=== PATIENT | female | born 1955 | race Asian ===

== ENCOUNTER 2017-11-27 17:04 | Inpatient (IN) | payer OTHER ==
[~2017-11-27] VITALS: Ht 160 cm; Wt 66.3 kg
[~2017-11-27 17:04] MED LIST: ACTOS15 MG PO; ACTOS45 MG PO; ALPHAGAN P100 DROP/5 RIGHT EYE; AMLODIPINE BESY10 MG PO; ASPIR-LOW81 MG PO; ASPIRIN E.C.81 M1 PO; ATENOLOL100 MG PO; ATROPINE 1100 DROP/5 RIGHT EYE; BASAGLAR K100 UNIT/1 SC; CALCITRIOL0.25 MCG PO; COLACE100 MG PO; COMBIGAN O20 DROP/5 RIGHT EYE; CONSTULOSE10 GM/15 M PO; Cipro PO; ERGOCALCIF50000 UNIT PO; FLUDROCORTISON0.1 M1 PO; FUROSEMIDE20 MG PO; HYDROCHLOROTHIA25 MG PO; HYDROCODON-ACE1 EAC7 PO; ISOPTO CARPINE15 M1 RIGHT EYE; KEFLEX500 MG PO; LANTUS 10100 UNITS/ SC; LANTUS 10100 UNITS/ SQ; LANTUS 3 M100 UNITS/ SC; LANTUS 3 M100 UNITS1 SC; LASIX20 MG PO; LEVAQUIN750 MG PO; LORTAB 5-325 M1 EACH PO; Lasix PO; MEDROL DOSEPAK4 MG PO; METOCLOPRAMIDE10 MG PO; NOVOLIN R100 UNIT/1 IM; NOVOLOG 10100 UNITS/ SC; OCUFLOX 0.100 DROP/5 RIGHT EYE; PIOGLITAZONE HC15 MG PO; ROCALTROL0.25 MCG PO; ROXICODONE5 MG PO; SIMVASTATIN20 MG PO; SIMVASTATIN40 M1 PO; TRAVATAN Z5 ML RIGHT EYE; TYLENOL WITH C1 EACH PO; Tenormin PO; VITAMIN D250000 UNIT PO; ZESTRIL,PRINIVI10 M1 PO; ZOFRAN4 MG PO
[2017-11-27 18:43] LABS: BASOPHIL (%) 1.2 % (0-1); BASOPHIL COUNT 0.1 K/uL (0-0.1); EOSINOPHIL (%) 6.2 % (0-5); EOSINOPHIL COUNT 0.6 K/uL (0-0.3); HEMATOCRIT 34.1 % (36.0-46.0); HEMOGLOBIN 11.5 G/DL (11.9-15.5); IMMATURE GRANULOCYTE (%) 0.3 % (0.0-0.7); LYMPHOCYTE (%) 28.5 % (15-42); LYMPHOCYTE COUNT 2.7 K/uL (1.0-2.8); MCH 29.4 PG (29.0-34.0); MCHC 33.7 G/DL (30.0-36.0); MCV 87.2 FL (83-99); MONOCYTE COUNT 0.6 K/uL (0-0.8); NEUTROPHIL (%) 57.8 % (45-76); NEUTROPHIL COUNT 5.5 K/uL (1.8-6.4); PLATELET COUNT 259 K/uL (156-360); RBC DIS.WIDTH-CV 12.4 % (11.8-14.6); RBC DIS.WIDTH-SD 39.3 % (39-53); RED BLOOD COUNT 3.91 M/uL (3.80-5.20); WHITE BLOOD COUNT 9.6 K/uL (4.1-10.2)
[2017-11-27 18:51] LABS: CHLORIDE 105 mEq/L (99-109); INTER. NORMALIZED RATIO 0.9; SODIUM 139 mEq/L (136-147)
[2017-11-27 18:53] LABS: GLUCOSE 279 mg/dL (70-99)
[2017-11-27 18:57] LABS: GFR ESTIMATE (CALCULATED) 17 mL/min/
[2017-11-27 18:58] LABS: UREA NITROGEN (BUN) 52 mg/dL (9-23)
[2017-11-27 19:03] LABS: TROP-I INTERPRETATION NEGATIVE; TROPONIN-I 0.04 ng/mL (0.0-0.30)
[2017-11-27] MEDS ORDERED: ADULT ASPIRIN R81 MG PO (20:19)
[2017-11-27] MEDS ORDERED: NORMODYNE,TRAN200 MG PO (20:45)
[2017-11-27] MEDS ORDERED: SPECTRAVITE1 EAC3 PO (20:45)
[2017-11-27] MEDS ORDERED: SENNA8.6 MG PO (20:50)
[2017-11-27] MEDS ORDERED: METOCLOPRAMIDE10 MG PO (20:50)
[2017-11-27] MEDS ORDERED: CALCITRIOL0.25 MCG PO ×3 (20:51)
[2017-11-27 20:58] LABS: PTT 34.7 SEC (25-37)
[2017-11-27 22:29] VITALS: BP 142/68
[2017-11-28] VITALS (8 sets, daily range): BP systolic 119–200; BP diastolic 57–159
[2017-11-28 01:08] LABS: TROP-I INTERPRETATION NEGATIVE; TROPONIN-I 0.08 ng/mL (0.0-0.30)
[2017-11-28 03:11] LABS: HEMATOCRIT 33.4 % (36.0-46.0); MCHC 32.9 G/DL (30.0-36.0); MCV 88.1 FL (83-99); PLATELET COUNT 255 K/uL (156-360); RBC DIS.WIDTH-CV 12.4 % (11.8-14.6); RBC DIS.WIDTH-SD 39.6 % (39-53); RED BLOOD COUNT 3.79 M/uL (3.80-5.20); WHITE BLOOD COUNT 10.9 K/uL (4.1-10.2)
[2017-11-28 03:47] LABS: CHLORIDE 106 mEq/L (99-109); POTASSIUM 3.8 mEq/L (3.7-5.4); SODIUM 142 mEq/L (136-147)
[2017-11-28 03:49] LABS: GLUCOSE 210 mg/dL (70-99)
[2017-11-28 03:53] LABS: CREATININE 2.9 mg/dL (0.6-1.3); GFR ESTIMATE (CALCULATED) 17 mL/min/
[2017-11-28 03:54] LABS: UREA NITROGEN (BUN) 54 mg/dL (9-23)
[2017-11-28 07:40] LABS: TROP-I INTERPRETATION NEGATIVE; TROPONIN-I 0.07 ng/mL (0.0-0.30)
[2017-11-28 21:43] LABS: CHLORIDE 111 mEq/L (99-109); POTASSIUM 4.2 mEq/L (3.7-5.4); SODIUM 143 mEq/L (136-147)
[2017-11-28 21:44] LABS: GLUCOSE 213 mg/dL (70-99)
[2017-11-28 21:48] LABS: CREATININE 2.5 mg/dL (0.6-1.3); GFR ESTIMATE (CALCULATED) 21 mL/min/
[2017-11-28 21:49] LABS: UREA NITROGEN (BUN) 46 mg/dL (9-23)
[2017-11-28 21:51] LABS: CREATINE KINASE 131 IU/L (1-294); TOTAL CK 131 IU/L (1-294)
[2017-11-28 21:56] LABS: TROP-I INTERPRETATION NEGATIVE; TROPONIN-I 0.03 ng/mL (0.0-0.30)
[2017-11-28 21:57] LABS: CK-MB 2.7 ng/mL (0.0-4.9); CKMB RELATIVE INDEX 2.1 (0.0-3.9)
[2017-11-29] VITALS (16 sets, daily range): BP systolic 87–154; BP diastolic 47–115
[2017-11-29 00:26] LABS: BASE EXCESS -5.6 mEq/L (-3 to +3); BICARBONATE 20.1 mEq/L (22-26); CARBOXY HGB 0 % (0-5); METHEMOGLOBIN 0.4 % (0-1.5); PCO2 39 mm Hg (35-45); PO2 98 mm Hg (80-100); SITE RR; pH 7.32 (7.35-7.45)
[2017-11-29 00:27] LABS: DEVICE NIV; FI02 50 %; MODE S; PEEP 5 CM/H20; PRES. SUPPORT 10 CM/H2O; TOTAL RESP RATE 26 resp/min
[2017-11-29 05:28] LABS: BASOPHIL (%) 0.6 % (0-1); BASOPHIL COUNT 0.1 K/uL (0-0.1); EOSINOPHIL (%) 0.5 % (0-5); EOSINOPHIL COUNT 0.1 K/uL (0-0.3); HEMATOCRIT 33.1 % (36.0-46.0); HEMOGLOBIN 10.5 G/DL (11.9-15.5); IMMATURE GRANULOCYTE (%) 0.3 % (0.0-0.7); LYMPHOCYTE (%) 15.4 % (15-42); LYMPHOCYTE COUNT 2.2 K/uL (1.0-2.8); MCH 28.8 PG (29.0-34.0); MCHC 31.7 G/DL (30.0-36.0); MCV 90.7 FL (83-99); MONOCYTE (%) 4.5 % (3-12); MONOCYTE COUNT 0.6 K/uL (0-0.8); NEUTROPHIL (%) 78.7 % (45-76); NEUTROPHIL COUNT 11.1 K/uL (1.8-6.4); PLATELET COUNT 245 K/uL (156-360); RBC DIS.WIDTH-CV 12.5 % (11.8-14.6); RBC DIS.WIDTH-SD 41.1 % (39-53); RED BLOOD COUNT 3.65 M/uL (3.80-5.20); WHITE BLOOD COUNT 14.1 K/uL (4.1-10.2)
[2017-11-29 05:51] LABS: PTT 67.3 SEC (25-37)
[2017-11-29 05:56] LABS: ALBUMIN 3.9 G/DL (3.2-4.8); CHLORIDE 109 MEQ/L (99-109); CREATININE 2.6 MG/DL (0.6-1.3); GFR ESTIMATE (CALCULATED) 20 mL/min/; GLUCOSE 177 mg/dL (70-99); GLUCOSE 179 mg/dL (70-99); PHOSPHORUS 4.8 mg/dL (2.5-4.9); POTASSIUM 4.1 MEQ/L (3.7-5.4); POTASSIUM 4.2 MEQ/L (3.7-5.4); SODIUM 141 MEQ/L (136-147); UREA NITROGEN (BUN) 47 mg/dL (9-23); UREA NITROGEN (BUN) 48 mg/dL (9-23)
[2017-11-30 05:50] LABS: INTER. NORMALIZED RATIO 1.1
[2017-11-30 07:00] VITALS: BP 179/63
[2017-11-30 08:17] LABS: ALBUMIN 3.9 G/DL (3.2-4.8); CHLORIDE 112 MEQ/L (99-109); CREATININE 2.5 MG/DL (0.6-1.3); GFR ESTIMATE (CALCULATED) 21 mL/min/; GLUCOSE 151 mg/dL (70-99); PHOSPHORUS 4.6 mg/dL (2.5-4.9); POTASSIUM 4.2 MEQ/L (3.7-5.4); SODIUM 147 MEQ/L (136-147); UREA NITROGEN (BUN) 40 mg/dL (9-23)
== END 2017-11-30 12:45 | disposition short-term general hospital (02) | DRG 270 ==
LOC: EME 17:04 → 4EAST 21:41 → EDOF 21:41 → 4WEST 21:41 → ENRESERV 21:42 → 4EAST 22:24 → ENRESERV 11-28 21:30 → 4WEST 11-28 21:40
PROVIDERS: Emergency Medicine; Hospitalist; Internal Medicine; Internal Medicine Nephrology; Surgery
PROC: 5A09357 Assistance with Respiratory Ventilation, Less than 24 Consecutive Hours, Continuous Positive Airway Pressure (ICD-10-PCS; principal; 2017-11-28)
PROC: 5A02210 Assistance with Cardiac Output using Balloon Pump, Continuous (ICD-10-PCS; 2017-11-29)
PROC: B2111ZZ Fluoroscopy of Multiple Coronary Arteries using Low Osmolar Contrast (ICD-10-PCS; 2017-11-29)
PROC: 4A023N7 Measurement of Cardiac Sampling and Pressure, Left Heart, Percutaneous Approach (ICD-10-PCS; 2017-11-29)
DX: I21.4 Non-ST elevation (NSTEMI) myocardial infarction (principal); J96.01 Acute respiratory failure with hypoxia; N17.9 Acute kidney failure, unspecified; I25.110 Atherosclerotic heart disease of native coronary artery with unstable angina pectoris; I25.84 Coronary atherosclerosis due to calcified coronary lesion; I13.0 Hypertensive heart and chronic kidney disease with heart failure and stage 1 through stage 4 chronic kidney disease, or unspecified chronic kidney disease; E11.22 Type 2 diabetes mellitus with diabetic chronic kidney disease; I50.30 Unspecified diastolic (congestive) heart failure; N18.4 Chronic kidney disease, stage 4 (severe); E11.65 Type 2 diabetes mellitus with hyperglycemia; E11.319 Type 2 diabetes mellitus with unspecified diabetic retinopathy without macular edema; E11.43 Type 2 diabetes mellitus with diabetic autonomic (poly)neuropathy; K31.84 Gastroparesis; E11.51 Type 2 diabetes mellitus with diabetic peripheral angiopathy without gangrene; D63.1 Anemia in chronic kidney disease; D50.9 Iron deficiency anemia, unspecified; E78.5 Hyperlipidemia, unspecified; M19.90 Unspecified osteoarthritis, unspecified site; E55.9 Vitamin D deficiency, unspecified; N25.81 Secondary hyperparathyroidism of renal origin; H54.62 Unqualified visual loss, left eye, normal vision right eye; H33.22 Serous retinal detachment, left eye; E78.00 Pure hypercholesterolemia, unspecified; I25.2 Old myocardial infarction; F41.9 Anxiety disorder, unspecified; F32.9 Major depressive disorder, single episode, unspecified; I49.3 Ventricular premature depolarization; Z79.4 Long term (current) use of insulin; Z79.82 Long term (current) use of aspirin; Z89.411 Acquired absence of right great toe; Z83.3 Family history of diabetes mellitus; Z82.49 Family history of ischemic heart disease and other diseases of the circulatory system
CPT/HCPCS: 36600; 71045; 71046; 80048; 80048 91; 80069; 82550 91; 82553; 82803; 82948; 84484; 85025; 85027; 85610; 85730; 87641; 93005; 93306; 94002; 99281; 99285; C1725; C1769; C1887; C1894; J1644; J1815; J1940; J2250; J3010; J7030

== ENCOUNTER 2018-01-03 13:55 | Inpatient (IN) | payer OTHER ==
[~2018-01-03] VITALS: Ht 162.6 cm; Wt 75.3 kg
[~2018-01-03 13:55] MED LIST changes: +ADULT ASPIRIN R81 MG PO; +NORMODYNE,TRAN200 MG PO; +SENNA8.6 MG PO; +SPECTRAVITE1 EAC3 PO
[2018-01-03 15:18] LABS: BICARBONATE 19.3 mEq/L (22-26); METHEMOGLOBIN 0.8 % (0-1.5); PCO2 41 mm Hg (35-45); PO2 72 mm Hg (80-100)
[2018-01-03 15:19] LABS: COMMENTS - BLOOD GASES C+; DEVICE VENT; FI02 35 %; MECHANICAL RATE 12 resp/min; MODE SIMV; PEEP 5 CM/H20; PRES. SUPPORT 5 CM/H2O; SITE RR; TIDAL VOLUME 450 ML; TOTAL RESP RATE 16 resp/min; pH 7.28 (7.35-7.45)
[2018-01-03 15:45] LABS: BASOPHIL (%) 0.3 % (0-1); BASOPHIL COUNT 0.1 K/uL (0-0.1); EOSINOPHIL (%) 0.2 % (0-5); HEMATOCRIT 26.2 % (36.0-46.0); HEMOGLOBIN 7.9 G/DL (11.9-15.5); IMMATURE GRANULOCYTE (%) 0.9 % (0.0-0.7); LYMPHOCYTE (%) 4.4 % (15-42); LYMPHOCYTE COUNT 0.7 K/uL (1.0-2.8); MCH 29.7 PG (29.0-34.0); MCHC 30.2 G/DL (30.0-36.0); MCV 98.5 FL (83-99); NEUTROPHIL (%) 88.2 % (45-76); NEUTROPHIL COUNT 14.3 K/uL (1.8-6.4); NRBC (%) 0.3 /100 WBC (0-0); PLATELET COUNT 312 K/uL (156-360); RBC DIS.WIDTH-CV 17.4 % (11.8-14.6); RBC DIS.WIDTH-SD 62.9 % (39-53); RED BLOOD COUNT 2.66 M/uL (3.80-5.20); WHITE BLOOD COUNT 16.3 K/uL (4.1-10.2)
[2018-01-03 15:53] LABS: CHLORIDE 108 mEq/L (99-109); POTASSIUM 4.5 mEq/L (3.7-5.4); SODIUM 138 mEq/L (136-147)
[2018-01-03 15:56] LABS: GLUCOSE 170 mg/dL (70-99); TOTAL PROTEIN 6.7 g/dL (6.4-8.3)
[2018-01-03 15:58] LABS: TOTAL BILIRUBIN 0.6 mg/dL (0.0-1.0)
[2018-01-03 15:59] LABS: ALKALINE PHOSPHATASE 270 IU/L (3-129); CREATININE 3.7 mg/dL (0.6-1.3); GFR ESTIMATE (CALCULATED) 13 mL/min/
[2018-01-03 16:01] LABS: AST (GOT) 17 IU/L (2-34)
[2018-01-03 16:02] LABS: ALT (GPT) 28 IU/L (3-49)
[2018-01-03 16:03] LABS: LIPASE 526 U/L (1.0-51.0)
[2018-01-03 16:06] LABS: TROP-I INTERPRETATION NEGATIVE; TROPONIN-I 0.12 ng/mL (0.0-0.30)
[2018-01-03 16:19] LABS: UREA NITROGEN (BUN) 113 mg/dL (9-23)
[2018-01-03] MEDS ORDERED: PAIN RELIE160 MG/52 PO (17:20)
[2018-01-03] MEDS ORDERED: AMIODARONE HCL200 MG PO (17:21)
[2018-01-03] MEDS ORDERED: DUONEB 2.5-0.5 M3 ML AEROSOL (17:21)
[2018-01-03] MEDS ORDERED: ATORVASTATIN CA40 MG GT (17:22)
[2018-01-03] MEDS ORDERED: DULCOLAX10 MG PR (17:22)
[2018-01-03] MEDS ORDERED: CHLORHEXIDINE473 ML MM (17:23)
[2018-01-03] MEDS ORDERED: ARANESP40 MCG/0.4 IV (17:24)
[2018-01-03] MEDS ORDERED: PLAVIX75 MG GT (17:24)
[2018-01-03] MEDS ORDERED: PEPCID20 MG GT (17:25)
[2018-01-03] MEDS ORDERED: FENTANYL 050 MCG/1 M IV (17:26)
[2018-01-03] MEDS ORDERED: GLUCOSE GEL38 GM PO (17:27)
[2018-01-03] MEDS ORDERED: GLUCAGON1 MG IM (17:27)
[2018-01-03] MEDS ORDERED: APRESOLINE20 MG/ML IV (17:28)
[2018-01-03] MEDS ORDERED: HEPARIN SO5000 UNIT3 SC (17:28)
[2018-01-03] MEDS ORDERED: LANTUS 10100 UNITS/ SC (17:29)
[2018-01-03] MEDS ORDERED: HUMALOG100 UNIT/1 SC (17:30)
[2018-01-03] MEDS ORDERED: LOPRESSOR25 MG GT (17:32)
[2018-01-03] MEDS ORDERED: LOPRESSOR5 MG/5 ML IV (17:33)
[2018-01-03] MEDS ORDERED: LOPRESSOR25 MG PO (17:35)
[2018-01-03] MEDS ORDERED: OXYCODONE HCL10 MG GT (17:36)
[2018-01-03] MEDS ORDERED: AKWA TEARS OIN3.5 GM BOTH EYES (17:36)
[2018-01-03] MEDS ORDERED: POTASSIUM CHLORIDE IV (17:39)
[2018-01-03] MEDS ORDERED: KLOR-CON M2020 MEQ PO (17:40)
[2018-01-03] MEDS ORDERED: SERTRALINE HCL50 MG PO (17:40)
[2018-01-03] MEDS ORDERED: METAMUCIL FIBE3.4 GM PO (17:40)
[2018-01-03] MEDS ORDERED: GAS RELIEF 8080 MG GT (17:41)
[2018-01-03] MEDS ORDERED: TRAZODONE HCL50 MG GT (17:41)
[2018-01-03 19:38] LABS: APPEARANCE SL.HAZY ((CLEAR)); BILIRUBIN NEGATIVE; BLOOD MODERATE; COLOR YELLOW ((YELLOW)); GLUCOSE (STRIP) 150; KETONES NEGATIVE; LEUKOCYTES NEGATIVE; NITRITE NEGATIVE; PROTEIN (STRIP) 30; SPECIFIC GRAVITY 1.014 (1.000-1.030); UROBILINOGEN 0.2 MG/DL (0.2-1.0)
[2018-01-03 19:47] LABS: BACTERIA NONE SEEN /HPF; EPITHELIAL CELLS RARE /HPF; HYALINE CASTS 0-5 /LPF; MUCUS TRACE /LPF; RED BLOOD CELLS 30-40 /HPF (0-5); UCUL ADDED? YES
[2018-01-03 20:00] VITALS: BP 140/76
[2018-01-03 20:01] VITALS: BP 142/73
[2018-01-03 20:19] LABS: TRIGLYCERIDES 65 MG/DL (Normal: <150)
[2018-01-03 20:59] VITALS: BP 125/64
[2018-01-03 22:01] VITALS: BP 137/72
[2018-01-03 22:35] LABS: ALBUMIN 2.7 g/dL (3.2-4.8); CHLORIDE 111 mEq/L (99-109); POTASSIUM 4.4 mEq/L (3.7-5.4); SODIUM 141 mEq/L (136-147)
[2018-01-03 22:36] VITALS: BP 139/76
[2018-01-03 22:36] LABS: MAGNESIUM 2.7 mg/dL (1.3-2.7)
[2018-01-03 22:38] LABS: TOTAL PROTEIN 5.9 g/dL (6.4-8.3)
[2018-01-03 22:40] LABS: GLUCOSE 116 mg/dL (70-99); TOTAL BILIRUBIN 0.6 mg/dL (0.0-1.0)
[2018-01-03 22:41] LABS: ALKALINE PHOSPHATASE 221 IU/L (3-129); CREATININE 3.6 mg/dL (0.6-1.3); GFR ESTIMATE (CALCULATED) 14 mL/min/; PHOSPHORUS 5.5 mg/dL (2.5-4.9)
[2018-01-03 22:44] LABS: ALT (GPT) 25 IU/L (3-49)
[2018-01-03 22:50] LABS: AST (GOT) 27 IU/L (2-34); UREA NITROGEN (BUN) 112 mg/dL (9-23)
[2018-01-04] VITALS (20 sets, daily range): BP systolic 103–146; BP diastolic 53–72
[2018-01-04 06:06] LABS: CHLORIDE 109 MEQ/L (99-109); CREATININE 3.3 MG/DL (0.6-1.3); GFR ESTIMATE (CALCULATED) 15 mL/min/; GLUCOSE 134 mg/dL (70-99); SODIUM 140 MEQ/L (136-147); UREA NITROGEN (BUN) 96 mg/dL (9-23)
[2018-01-04 13:49] LABS: IRON 26 MCG/DL (35-150); TRANSFERRIN (TIBC) 170.5 mg/dL (215-380); TRANSFERRIN SATUR. 15 % (20-55)
[2018-01-04 15:02] LABS: TROP-I INTERPRETATION NEGATIVE; TROPONIN-I 0.11 ng/mL (0.0-0.30)
[2018-01-05] VITALS (25 sets, daily range): BP systolic 112–155; BP diastolic 54–79
[2018-01-05 05:54] LABS: BASOPHIL (%) 0.4 % (0-1); BASOPHIL COUNT 0.1 K/uL (0-0.1); EOSINOPHIL (%) 3.1 % (0-5); EOSINOPHIL COUNT 0.5 K/uL (0-0.3); HEMATOCRIT 22.2 % (36.0-46.0); IMMATURE GRANULOCYTE (%) 0.4 % (0.0-0.7); LYMPHOCYTE (%) 4.5 % (15-42); LYMPHOCYTE COUNT 0.7 K/uL (1.0-2.8); MCH 29.3 PG (29.0-34.0); MCHC 30.2 G/DL (30.0-36.0); MCV 96.9 FL (83-99); MONOCYTE (%) 6.3 % (3-12); MONOCYTE COUNT 0.9 K/uL (0-0.8); NEUTROPHIL (%) 85.3 % (45-76); NEUTROPHIL COUNT 12.4 K/uL (1.8-6.4); NRBC (%) 0.1 /100 WBC (0-0); PLATELET COUNT 251 K/uL (156-360); RBC DIS.WIDTH-SD 63.3 % (39-53); RED BLOOD COUNT 2.29 M/uL (3.80-5.20); WHITE BLOOD COUNT 14.6 K/uL (4.1-10.2)
[2018-01-05 06:09] LABS: HEMOGLOBIN 6.7 G/DL (11.9-15.5)
[2018-01-05 06:25] LABS: ALBUMIN 2.6 G/DL (3.2-4.8); ALKALINE PHOSPHATASE 194 IU/L (3-129); ALT (GPT) 19 IU/L (3-49); AST (GOT) 11 IU/L (2-34); CHLORIDE 105 MEQ/L (99-109); GLUCOSE 196 mg/dL (70-99); POTASSIUM 3.9 MEQ/L (3.7-5.4); SODIUM 139 MEQ/L (136-147); TOTAL BILIRUBIN 0.6 MG/DL (0.0-1.0); TOTAL PROTEIN 5.7 G/DL (6.4-8.3); UREA NITROGEN (BUN) 65 mg/dL (9-23)
[2018-01-05 06:26] LABS: CREATININE 2.5 MG/DL (0.6-1.3); GFR ESTIMATE (CALCULATED) 21 mL/min/; VANCOMYCIN, TROUGH 14.6 MCG/ML (10-20)
[2018-01-05 13:54] LABS: IMM.RETIC FRACTION 33.8 % (3-19); RETIC HGB EQUIVALENT 28.4 (28-36)
[2018-01-05 14:27] LABS: DIRECT BILIRUBIN 0.3 mg/dL (0.0-0.3); IRON 25 MCG/DL (35-150); TRANSFERRIN (TIBC) 170.1 mg/dL (215-380); TRANSFERRIN SATUR. 15 % (20-55)
[2018-01-05 15:16] LABS: FOLIC ACID (FOLATE) 13.2 NG/ML (5.0-22.0)
[2018-01-06] VITALS (24 sets, daily range): BP systolic 129–154; BP diastolic 57–79
[2018-01-06 05:16] LABS: BASOPHIL (%) 0.4 % (0-1); BASOPHIL COUNT 0.1 K/uL (0-0.1); EOSINOPHIL (%) 4.8 % (0-5); EOSINOPHIL COUNT 0.7 K/uL (0-0.3); HEMATOCRIT 26.5 % (36.0-46.0); HEMOGLOBIN 7.9 G/DL (11.9-15.5); IMMATURE GRANULOCYTE (%) 0.5 % (0.0-0.7); LYMPHOCYTE (%) 5.1 % (15-42); LYMPHOCYTE COUNT 0.7 K/uL (1.0-2.8); MCHC 29.8 G/DL (30.0-36.0); NEUTROPHIL (%) 82.2 % (45-76); NEUTROPHIL COUNT 11.2 K/uL (1.8-6.4); NRBC (%) 0.1 /100 WBC (0-0); PLATELET COUNT 242 K/uL (156-360); RBC DIS.WIDTH-CV 19.7 % (11.8-14.6); RBC DIS.WIDTH-SD 65.3 % (39-53); WHITE BLOOD COUNT 13.6 K/uL (4.1-10.2)
[2018-01-06 05:20] LABS: RED BLOOD COUNT 2.82 M/uL (3.80-5.20)
[2018-01-06 05:37] LABS: ALBUMIN 2.8 G/DL (3.2-4.8); CHLORIDE 103 MEQ/L (99-109); POTASSIUM 3.5 MEQ/L (3.7-5.4); SODIUM 141 MEQ/L (136-147)
[2018-01-06 05:39] LABS: TOTAL BILIRUBIN 0.8 MG/DL (0.0-1.0)
[2018-01-06 05:43] LABS: ALKALINE PHOSPHATASE 199 IU/L (3-129); ALT (GPT) 17 IU/L (3-49); AST (GOT) 10 IU/L (2-34); CREATININE 2.6 MG/DL (0.6-1.3); GFR ESTIMATE (CALCULATED) 20 mL/min/; GLUCOSE 224 mg/dL (70-99); PHOSPHORUS 4.4 mg/dL (2.5-4.9); UREA NITROGEN (BUN) 67 mg/dL (9-23)
[2018-01-06 11:44] LABS: HEPATITIS B SURFACE ANTIGEN Nonreactive
[2018-01-06 11:45] LABS: HEPATITIS B SURFACE ANTIBODY Nonreactive
[2018-01-06 15:03] LABS: IRON 24 MCG/DL (35-150); TRANSFERRIN (TIBC) 169.3 mg/dL (215-380); TRANSFERRIN SATUR. 14 % (20-55)
[2018-01-06 18:28] LABS: DEVICE 840; FI02 30 %; MODE SPON; SITE LR; TOTAL RESP RATE 19 resp/min
[2018-01-06 18:29] LABS: PEEP 5 CM/H20; PRES. SUPPORT 10 CM/H2O; pH 7.43 (7.35-7.45)
[2018-01-06 18:30] LABS: COMMENTS - BLOOD GASES A+C+
[2018-01-06 18:32] LABS: PCO2 43 mm Hg (35-45); PO2 39 mm Hg (80-100)
[2018-01-06 18:33] LABS: O2 SATURATION (CALCULATED) 80.2 % (95-99)
[2018-01-06 18:34] LABS: BASE EXCESS 3.8 mEq/L (-3 to +3); BICARBONATE 28.5 mEq/L (22-26); CARBOXY HGB 2.3 % (0-5); METHEMOGLOBIN 1.1 % (0-1.5)
[2018-01-07] VITALS (22 sets, daily range): BP systolic 95–154; BP diastolic 55–76
[2018-01-07 05:58] LABS: BASOPHIL (%) 0.3 % (0-1); EOSINOPHIL (%) 3.2 % (0-5); EOSINOPHIL COUNT 0.4 K/uL (0-0.3); HEMATOCRIT 26.4 % (36.0-46.0); HEMOGLOBIN 7.9 G/DL (11.9-15.5); IMMATURE GRANULOCYTE (%) 0.5 % (0.0-0.7); LYMPHOCYTE (%) 5.8 % (15-42); LYMPHOCYTE COUNT 0.8 K/uL (1.0-2.8); MCH 28.4 PG (29.0-34.0); MCHC 29.9 G/DL (30.0-36.0); MONOCYTE (%) 6.2 % (3-12); MONOCYTE COUNT 0.8 K/uL (0-0.8); NEUTROPHIL COUNT 11.3 K/uL (1.8-6.4); PLATELET COUNT 221 K/uL (156-360); RBC DIS.WIDTH-CV 19.7 % (11.8-14.6); RBC DIS.WIDTH-SD 66.7 % (39-53); RED BLOOD COUNT 2.78 M/uL (3.80-5.20); WHITE BLOOD COUNT 13.5 K/uL (4.1-10.2)
[2018-01-07 06:24] LABS: ALBUMIN 2.6 G/DL (3.2-4.8); ALKALINE PHOSPHATASE 186 IU/L (3-129); ALT (GPT) 17 IU/L (3-49); CHLORIDE 101 MEQ/L (99-109); CREATININE 2.6 MG/DL (0.6-1.3); GFR ESTIMATE (CALCULATED) 20 mL/min/; GLUCOSE 236 mg/dL (70-99); POTASSIUM 3.8 MEQ/L (3.7-5.4); SODIUM 140 MEQ/L (136-147); TOTAL BILIRUBIN 0.9 MG/DL (0.0-1.0); TOTAL PROTEIN 5.9 G/DL (6.4-8.3); UREA NITROGEN (BUN) 65 mg/dL (9-23)
[2018-01-07 06:25] LABS: AST (GOT) 15 IU/L (2-34)
[2018-01-08] VITALS (9 sets, daily range): BP systolic 112–151; BP diastolic 53–70
[2018-01-08 05:23] LABS: BASOPHIL (%) 0.3 % (0-1); EOSINOPHIL (%) 3.6 % (0-5); EOSINOPHIL COUNT 0.5 K/uL (0-0.3); HEMATOCRIT 26.5 % (36.0-46.0); HEMOGLOBIN 7.9 G/DL (11.9-15.5); IMMATURE GRANULOCYTE (%) 0.6 % (0.0-0.7); LYMPHOCYTE COUNT 0.9 K/uL (1.0-2.8); MCH 28.4 PG (29.0-34.0); MCHC 29.8 G/DL (30.0-36.0); MCV 95.3 FL (83-99); MONOCYTE (%) 8.4 % (3-12); MONOCYTE COUNT 1.1 K/uL (0-0.8); NEUTROPHIL (%) 80.1 % (45-76); PLATELET COUNT 212 K/uL (156-360); RBC DIS.WIDTH-CV 19.5 % (11.8-14.6); RBC DIS.WIDTH-SD 66.3 % (39-53); RED BLOOD COUNT 2.78 M/uL (3.80-5.20); WHITE BLOOD COUNT 12.5 K/uL (4.1-10.2)
[2018-01-08 06:07] LABS: ALBUMIN 2.6 G/DL (3.2-4.8); ALKALINE PHOSPHATASE 182 IU/L (3-129); ALT (GPT) 20 IU/L (3-49); CHLORIDE 99 MEQ/L (99-109); GFR ESTIMATE (CALCULATED) 17 mL/min/; GLUCOSE 200 mg/dL (70-99); POTASSIUM 3.4 MEQ/L (3.7-5.4); SODIUM 139 MEQ/L (136-147); TOTAL BILIRUBIN 0.8 MG/DL (0.0-1.0); TOTAL PROTEIN 5.9 G/DL (6.4-8.3); UREA NITROGEN (BUN) 75 mg/dL (9-23)
[2018-01-08 06:08] LABS: AST (GOT) 23 IU/L (2-34)
[2018-01-08] MEDS ORDERED: ALBUTEROL2.5 MG/0.5 AEROSOL (14:56)
[2018-01-08] MEDS ORDERED: DUONEB 2.5-0.5 M3 ML AEROSOL (14:56)
[2018-01-08] MEDS ORDERED: CORDARONE200 MG GT (14:57)
[2018-01-08] MEDS ORDERED: CARVEDILOL3.125 MG GT (14:58)
[2018-01-08] MEDS ORDERED: FURO100I IV (14:59)
[2018-01-08] MEDS ORDERED: ZOSYN 3.3753.375 GM IV (15:06)
== END 2018-01-08 17:48 | disposition designated cancer center or children's hospital (05) | DRG 207 ==
LOC: EME 13:55 → 4WEST 18:18 → EDOF 18:18 → ENRESERV 18:22 → 4WEST 19:31
PROVIDERS: Emergency Medicine; Internal Medicine; Internal Medicine Nephrology; Surgery
PROC: B548ZZA Ultrasonography of Superior Vena Cava, Guidance (ICD-10-PCS; principal; 2018-01-03)
PROC: 5A1955Z Respiratory Ventilation, Greater than 96 Consecutive Hours (ICD-10-PCS; principal; 2018-01-03)
PROC: 02HV33Z Insertion of Infusion Device into Superior Vena Cava, Percutaneous Approach (ICD-10-PCS; principal; 2018-01-03)
PROC: 5A1D70Z Performance of Urinary Filtration, Intermittent, Less than 6 Hours Per Day (ICD-10-PCS; 2018-01-04)
PROC: 30233N1 Transfusion of Nonautologous Red Blood Cells into Peripheral Vein, Percutaneous Approach (ICD-10-PCS; 2018-01-05)
DX: J69.0 Pneumonitis due to inhalation of food and vomit (principal); I13.0 Hypertensive heart and chronic kidney disease with heart failure and stage 1 through stage 4 chronic kidney disease, or unspecified chronic kidney disease; I50.23 Acute on chronic systolic (congestive) heart failure; N18.4 Chronic kidney disease, stage 4 (severe); N17.9 Acute kidney failure, unspecified; E87.2 Acidosis; J96.11 Chronic respiratory failure with hypoxia; Z99.11 Dependence on respirator [ventilator] status; I46.8 Cardiac arrest due to other underlying condition; T46.2X5A Adverse effect of other antidysrhythmic drugs, initial encounter; T44.7X5A Adverse effect of beta-adrenoreceptor antagonists, initial encounter; E11.22 Type 2 diabetes mellitus with diabetic chronic kidney disease; E11.21 Type 2 diabetes mellitus with diabetic nephropathy; E11.51 Type 2 diabetes mellitus with diabetic peripheral angiopathy without gangrene; E11.42 Type 2 diabetes mellitus with diabetic polyneuropathy; E11.319 Type 2 diabetes mellitus with unspecified diabetic retinopathy without macular edema; L89.613 Pressure ulcer of right heel, stage 3; I25.810 Atherosclerosis of coronary artery bypass graft(s) without angina pectoris; I08.1 Rheumatic disorders of both mitral and tricuspid valves; Z93.1 Gastrostomy status; Z93.0 Tracheostomy status; S31.104A Unspecified open wound of abdominal wall, left lower quadrant without penetration into peritoneal cavity, initial encounter; S31.103A Unspecified open wound of abdominal wall, right lower quadrant without penetration into peritoneal cavity, initial encounter; S31.000A Unspecified open wound of lower back and pelvis without penetration into retroperitoneum, initial encounter; T81.89XA Other complications of procedures, not elsewhere classified, initial encounter; D50.9 Iron deficiency anemia, unspecified; D63.1 Anemia in chronic kidney disease; E78.5 Hyperlipidemia, unspecified; H40.9 Unspecified glaucoma; I25.10 Atherosclerotic heart disease of native coronary artery without angina pectoris; I25.5 Ischemic cardiomyopathy; F32.9 Major depressive disorder, single episode, unspecified; E66.9 Obesity, unspecified; Z68.32 Body mass index [BMI] 32.0-32.9, adult; I25.2 Old myocardial infarction; Z89.411 Acquired absence of right great toe; Z79.4 Long term (current) use of insulin; Z79.02 Long term (current) use of antithrombotics/antiplatelets
CPT/HCPCS: 36600; 71045; 71250; 74176; 80048; 80053; 80202; 81003; 82248; 82607; 82746; 82803; 82948; 83540; 83605; 83690; 83735; 84100; 84145 90; 84466; 84478; 84484; 85025; 85046; 86706; 86850; 86900; 86901; 86920; 87040; 87070; 87081; 87086; 87205; 87340; 87641; 93005; 93306; 94002; 94003; 94640; 94640 76; 94760; 99202; 99281; 99285; A6214; C1751; C1753; C1788; J0692; J0881; J1644; J1756; J1815; J1940; J2060; J2543; J3010; J3370; J7050; J7060; P9016; S0030

== ENCOUNTER 2018-01-10 17:51 | Inpatient (IN) | payer OTHER ==
[~2018-01-10] VITALS: Ht 162.6 cm; Wt 75.7 kg
[~2018-01-10 17:51] MED LIST changes: +AKWA TEARS OIN3.5 GM BOTH EYES; +ALBUTEROL2.5 MG/0.5 AEROSOL; +AMIODARONE HCL200 MG PO; +APRESOLINE20 MG/ML IV; +ARANESP40 MCG/0.4 IV; +ATORVASTATIN CA40 MG GT; +CARVEDILOL3.125 MG GT; +CHLORHEXIDINE473 ML MM; +CORDARONE200 MG GT; +DULCOLAX10 MG PR; +DUONEB 2.5-0.5 M3 ML AEROSOL; +FENTANYL 050 MCG/1 M IV; +FURO100I IV; +GAS RELIEF 8080 MG GT; +GLUCAGON1 MG IM; +GLUCOSE GEL38 GM PO; +HEPARIN SO5000 UNIT3 SC; +HUMALOG100 UNIT/1 SC; +KLOR-CON M2020 MEQ PO; +LOPRESSOR25 MG GT; +LOPRESSOR25 MG PO; +LOPRESSOR5 MG/5 ML IV; +METAMUCIL FIBE3.4 GM PO; +OXYCODONE HCL10 MG GT; +PAIN RELIE160 MG/52 PO; +PEPCID20 MG GT; +PLAVIX75 MG GT; +POTASSIUM CHLORIDE IV; +SERTRALINE HCL50 MG PO; +TRAZODONE HCL50 MG GT; +ZOSYN 3.3753.375 GM IV
[2018-01-10 18:46] LABS: BASOPHIL (%) 0.3 % (0-1); EOSINOPHIL (%) 5.5 % (0-5); EOSINOPHIL COUNT 0.6 K/uL (0-0.3); HEMATOCRIT 27.8 % (36.0-46.0); HEMOGLOBIN 8.4 G/DL (11.9-15.5); IMMATURE GRANULOCYTE (%) 0.7 % (0.0-0.7); LYMPHOCYTE COUNT 0.7 K/uL (1.0-2.8); MCH 29.7 PG (29.0-34.0); MCHC 30.2 G/DL (30.0-36.0); MCV 98.2 FL (83-99); MONOCYTE (%) 6.8 % (3-12); MONOCYTE COUNT 0.8 K/uL (0-0.8); NEUTROPHIL (%) 80.7 % (45-76); NEUTROPHIL COUNT 8.9 K/uL (1.8-6.4); PLATELET COUNT 195 K/uL (156-360); RBC DIS.WIDTH-CV 19.6 % (11.8-14.6); RBC DIS.WIDTH-SD 67.7 % (39-53); RED BLOOD COUNT 2.83 M/uL (3.80-5.20); WHITE BLOOD COUNT 11.1 K/uL (4.1-10.2)
[2018-01-10 18:56] LABS: POTASSIUM 3.6 mEq/L (3.7-5.4); SODIUM 138 mEq/L (136-147)
[2018-01-10 18:57] LABS: CHLORIDE 98 mEq/L (99-109)
[2018-01-10 18:58] LABS: GLUCOSE 203 mg/dL (70-99); TOTAL PROTEIN 6.7 g/dL (6.4-8.3)
[2018-01-10 19:00] LABS: TOTAL BILIRUBIN 0.7 mg/dL (0.0-1.0)
[2018-01-10 19:02] LABS: ALKALINE PHOSPHATASE 272 IU/L (3-129); GFR ESTIMATE (CALCULATED) 10 mL/min/
[2018-01-10 19:03] LABS: UREA NITROGEN (BUN) 92 mg/dL (9-23)
[2018-01-10 19:04] LABS: AST (GOT) 20 IU/L (2-34); CREATININE 4.8 mg/dL (0.6-1.3)
[2018-01-10 19:05] LABS: ALT (GPT) 24 IU/L (3-49)
[2018-01-10 19:31] LABS: APPEARANCE CLOUDY ((CLEAR)); BILIRUBIN NEGATIVE; BLOOD LARGE; COLOR AMBER ((YELLOW)); GLUCOSE (STRIP) 150; KETONES NEGATIVE; LEUKOCYTES LARGE; NITRITE NEGATIVE; PROTEIN (STRIP) 100; SPECIFIC GRAVITY 1.015 (1.000-1.030); UROBILINOGEN 0.2 MG/DL (0.2-1.0)
[2018-01-10 19:53] LABS: BACTERIA 2+ /HPF; EPITHELIAL CELLS 1+ /HPF; MUCUS 1+ /LPF; RED BLOOD CELLS TNTC /HPF (0-5); WHITE BLOOD CELLS 20-30 /HPF (0-5)
[2018-01-10] MEDS ORDERED: CORDARONE200 MG PO (20:59)
[2018-01-10] MEDS ORDERED: BAYER CHEWABLE81 MG GT (21:03)
[2018-01-10] MEDS ORDERED: FERGON324 MG GT (21:06)
[2018-01-10] MEDS ORDERED: LASIX80 MG GT (21:07)
[2018-01-10] MEDS ORDERED: LEVEMIR100 UNIT/2 SC (21:09)
[2018-01-10] MEDS ORDERED: NOVOLOG 10100 UNITS/ SC ×2 (21:11→21:13)
[2018-01-10] MEDS ORDERED: GAS RELIEF40 MG/0.6 GT (21:14)
[2018-01-10] MEDS ORDERED: ORAZINC220 MG GT (21:16)
[2018-01-10] MEDS ORDERED: ASCORBIC ACID500 M3 GT (21:16)
[2018-01-10] MEDS ORDERED: LASIX20 MG GT (21:18)
[2018-01-10] MEDS ORDERED: LASIX40 MG GT ×2 (21:19→21:26)
[2018-01-11] VITALS (7 sets, daily range): BP systolic 109–148; BP diastolic 26–92
[2018-01-11 04:16] LABS: C DIFF TOXIN NEGATIVE (NEGATIVE)
[2018-01-11 05:22] LABS: HEMATOCRIT 27.4 % (36.0-46.0); HEMOGLOBIN 8.1 G/DL (11.9-15.5); MCH 29.2 PG (29.0-34.0); MCHC 29.6 G/DL (30.0-36.0); MCV 98.9 FL (83-99); PLATELET COUNT 218 K/uL (156-360); RBC DIS.WIDTH-CV 19.7 % (11.8-14.6); RBC DIS.WIDTH-SD 68.1 % (39-53); RED BLOOD COUNT 2.77 M/uL (3.80-5.20); WHITE BLOOD COUNT 9.5 K/uL (4.1-10.2)
[2018-01-11 06:03] LABS: CHLORIDE 101 MEQ/L (99-109); CREATININE 4.6 MG/DL (0.6-1.3); GFR ESTIMATE (CALCULATED) 10 mL/min/; GLUCOSE 137 mg/dL (70-99); POTASSIUM 3.6 MEQ/L (3.7-5.4); SODIUM 137 MEQ/L (136-147); UREA NITROGEN (BUN) 89 mg/dL (9-23)
[2018-01-11 10:49] LABS: INTER. NORMALIZED RATIO 1.2
[2018-01-11 10:52] LABS: PTT 32.9 SEC (25-37)
[2018-01-11 12:11] LABS: COMMENTS - BLOOD GASES C+; DEVICE VENT; FI02 30 %; MECHANICAL RATE 12 resp/min; MODE A/C; SITE RB; TOTAL RESP RATE 12 resp/min
[2018-01-11 12:12] LABS: BASE EXCESS 1.5 mEq/L (-3 to +3); BICARBONATE 25.8 mEq/L (22-26); METHEMOGLOBIN 0.8 % (0-1.5); PCO2 38 mm Hg (35-45); PEEP 5 CM/H20; PO2 92 mm Hg (80-100); TIDAL VOLUME 450 ML; pH 7.44 (7.35-7.45)
[2018-01-11 13:31] LABS: MAGNESIUM 2.4 mg/dl (1.3-2.7)
[2018-01-11 18:42] LABS: UR CREATININE CONCENTRATION 50.9 MG/DL
[2018-01-12] VITALS: BP 149/77
[2018-01-12 04:00] VITALS: BP 135/74
[2018-01-12 05:15] LABS: HEMATOCRIT 27.8 % (36.0-46.0); HEMOGLOBIN 8.3 G/DL (11.9-15.5); MCH 29.6 PG (29.0-34.0); MCHC 29.9 G/DL (30.0-36.0); MCV 99.3 FL (83-99); PLATELET COUNT 235 K/uL (156-360); RBC DIS.WIDTH-CV 21.1 % (11.8-14.6); RBC DIS.WIDTH-SD 72.1 % (39-53); WHITE BLOOD COUNT 7.4 K/uL (4.1-10.2)
[2018-01-12 05:54] LABS: CHLORIDE 101 MEQ/L (99-109); CREATININE 4.2 MG/DL (0.6-1.3); GFR ESTIMATE (CALCULATED) 11 mL/min/; GLUCOSE 150 mg/dL (70-99); MAGNESIUM 2.4 mg/dl (1.3-2.7); POTASSIUM 3.9 MEQ/L (3.7-5.4); SODIUM 138 MEQ/L (136-147); UREA NITROGEN (BUN) 86 mg/dL (9-23)
[2018-01-12 08:00] VITALS: BP 140/66
[2018-01-12 12:00] VITALS: BP 143/52
[2018-01-12 16:00] VITALS: BP 143/64
[2018-01-12 21:00] VITALS: BP 123/57
[2018-01-13] VITALS: BP 135/66
[2018-01-13 04:00] VITALS: BP 148/68
[2018-01-13 06:04] LABS: HEMATOCRIT 28.7 % (36.0-46.0); HEMOGLOBIN 8.6 G/DL (11.9-15.5); MCH 29.2 PG (29.0-34.0); MCV 97.3 FL (83-99); PLATELET COUNT 257 K/uL (156-360); RBC DIS.WIDTH-CV 21.1 % (11.8-14.6); RBC DIS.WIDTH-SD 73.5 % (39-53); RED BLOOD COUNT 2.95 M/uL (3.80-5.20); WHITE BLOOD COUNT 8.8 K/uL (4.1-10.2)
[2018-01-13 06:27] LABS: ALBUMIN 2.7 G/DL (3.2-4.8); CHLORIDE 101 MEQ/L (99-109); CREATININE 3.7 MG/DL (0.6-1.3); CREATININE 3.8 MG/DL (0.6-1.3); GFR ESTIMATE (CALCULATED) 13 mL/min/; GLUCOSE 152 mg/dL (70-99); MAGNESIUM 2.1 mg/dl (1.3-2.7); PHOSPHORUS 3.3 mg/dL (2.5-4.9); POTASSIUM 3.6 MEQ/L (3.7-5.4); SODIUM 139 MEQ/L (136-147); UREA NITROGEN (BUN) 73 mg/dL (9-23); UREA NITROGEN (BUN) 74 mg/dL (9-23)
[2018-01-13 06:57] LABS: URIC ACID 8.6 mg/dL (3.1-9.2)
[2018-01-13 08:00] VITALS: BP 128/58
[2018-01-13] MEDS ORDERED: LEVEMIR100 UNIT/2 SC (08:58)
[2018-01-13] MEDS ORDERED: CHLORHEXIDINE473 ML MM (08:58)
[2018-01-13] MEDS ORDERED: NATURAL BALANCE15 M1 BOTH EYES ×2 (08:58)
[2018-01-13] MEDS ORDERED: CEFTRIAXONE1 G1 IV (08:58)
[2018-01-13 10:00] VITALS: BP 140/74
[2018-01-13 12:00] VITALS: BP 133/68
== END 2018-01-13 20:00 | DRG 682 ==
LOC: EME 17:51 → EDOF 23:09 → 4WEST 23:09 → ENRESERV 23:19 → 4WEST 01-11 00:03
PROVIDERS: Emergency Medicine; Hospitalist; Internal Medicine; Internal Medicine Nephrology; Internal Medicine Pulmonary Disease; Radiology Diagnostic Radiology
PROC: 5A1955Z Respiratory Ventilation, Greater than 96 Consecutive Hours (ICD-10-PCS; principal; 2018-01-10)
DX: N17.9 Acute kidney failure, unspecified (principal); N18.4 Chronic kidney disease, stage 4 (severe); T50.2X5A Adverse effect of carbonic-anhydrase inhibitors, benzothiadiazides and other diuretics, initial encounter; J96.10 Chronic respiratory failure, unspecified whether with hypoxia or hypercapnia; Z99.11 Dependence on respirator [ventilator] status; Z93.0 Tracheostomy status; L89.613 Pressure ulcer of right heel, stage 3; E11.21 Type 2 diabetes mellitus with diabetic nephropathy; E11.22 Type 2 diabetes mellitus with diabetic chronic kidney disease; E11.319 Type 2 diabetes mellitus with unspecified diabetic retinopathy without macular edema; E11.51 Type 2 diabetes mellitus with diabetic peripheral angiopathy without gangrene; N39.0 Urinary tract infection, site not specified; T83.518A Infection and inflammatory reaction due to other urinary catheter, initial encounter; Y84.6 Urinary catheterization as the cause of abnormal reaction of the patient, or of later complication, without mention of misadventure at the time of the procedure; I11.0 Hypertensive heart disease with heart failure; I50.9 Heart failure, unspecified; S31.104A Unspecified open wound of abdominal wall, left lower quadrant without penetration into peritoneal cavity, initial encounter; S31.103A Unspecified open wound of abdominal wall, right lower quadrant without penetration into peritoneal cavity, initial encounter; S31.000A Unspecified open wound of lower back and pelvis without penetration into retroperitoneum, initial encounter; D50.9 Iron deficiency anemia, unspecified; D63.1 Anemia in chronic kidney disease; E78.5 Hyperlipidemia, unspecified; R77.0 Abnormality of albumin; E87.6 Hypokalemia; H54.62 Unqualified visual loss, left eye, normal vision right eye; I25.10 Atherosclerotic heart disease of native coronary artery without angina pectoris; I25.5 Ischemic cardiomyopathy; K21.9 Gastro-esophageal reflux disease without esophagitis; F32.9 Major depressive disorder, single episode, unspecified; M19.90 Unspecified osteoarthritis, unspecified site; Z79.4 Long term (current) use of insulin; Z95.1 Presence of aortocoronary bypass graft; Z86.74 Personal history of sudden cardiac arrest; Z93.1 Gastrostomy status; Z79.02 Long term (current) use of antithrombotics/antiplatelets; Z79.82 Long term (current) use of aspirin; Z74.01 Bed confinement status; T81.89XA Other complications of procedures, not elsewhere classified, initial encounter
CPT/HCPCS: 36600; 71045; 80048; 80048 91; 80053; 80069; 81003; 82436; 82570; 82803; 82948; 83605; 83735; 84156; 84300; 84550; 85025; 85027; 85610; 85730; 87040; 87070; 87081; 87205; 87493; 87641; 94002; 94003; 99281; 99285; J0696; J1644; J1756; J1815; J2405; J7030; J7050

== ENCOUNTER 2018-01-24 13:24 | Inpatient (IN) | payer OTHER ==
[~2018-01-24] VITALS: Ht 160 cm; Wt 78.0 kg
[2018-01-24] VITALS (11 sets, daily range): BP systolic 144–169; BP diastolic 63–110
[~2018-01-24 13:24] MED LIST changes: +ARANESP100 MCG/0. IV; -ARANESP40 MCG/0.4 IV; +ASCORBIC ACID500 M3 GT; +BAYER CHEWABLE81 MG GT; +CEFTRIAXONE1 G1 IV; +FERGON324 MG GT; +GAS RELIEF40 MG/0.6 GT; +LASIX20 MG GT; +LASIX40 MG GT; +LASIX80 MG GT; +LEVEMIR100 UNIT/2 SC; +NATURAL BALANCE15 M1 BOTH EYES; +ORAZINC220 MG GT
[2018-01-24 14:05] LABS: BASOPHIL (%) 0.2 % (0-1); EOSINOPHIL (%) 0.1 % (0-5); HEMATOCRIT 33.7 % (36.0-46.0); HEMOGLOBIN 9.9 G/DL (11.9-15.5); IMMATURE GRANULOCYTE (%) 0.3 % (0.0-0.7); LYMPHOCYTE (%) 3.8 % (15-42); LYMPHOCYTE COUNT 0.3 K/uL (1.0-2.8); MCH 29.7 PG (29.0-34.0); MCHC 29.4 G/DL (30.0-36.0); MCV 101.2 FL (83-99); MONOCYTE (%) 3.9 % (3-12); MONOCYTE COUNT 0.3 K/uL (0-0.8); NEUTROPHIL (%) 91.7 % (45-76); PLATELET COUNT 291 K/uL (156-360); RBC DIS.WIDTH-CV 19.1 % (11.8-14.6); RBC DIS.WIDTH-SD 71.2 % (39-53); RED BLOOD COUNT 3.33 M/uL (3.80-5.20); WHITE BLOOD COUNT 8.7 K/uL (4.1-10.2)
[2018-01-24 14:11] LABS: INTER. NORMALIZED RATIO 1.1
[2018-01-24 14:13] LABS: ALBUMIN 3.4 g/dL (3.2-4.8); CHLORIDE 95 mEq/L (99-109); POTASSIUM 4.6 mEq/L (3.7-5.4); SODIUM 137 mEq/L (136-147)
[2018-01-24 14:14] LABS: MAGNESIUM 2.8 mg/dL (1.3-2.7); PTT 33.4 SEC (25-37)
[2018-01-24 14:15] LABS: GLUCOSE 160 mg/dL (70-99); TOTAL PROTEIN 7.3 g/dL (6.4-8.3)
[2018-01-24 14:17] LABS: TOTAL BILIRUBIN 0.6 mg/dL (0.0-1.0)
[2018-01-24 14:19] LABS: ALKALINE PHOSPHATASE 525 IU/L (3-129); GFR ESTIMATE (CALCULATED) 17 mL/min/
[2018-01-24 14:20] LABS: UREA NITROGEN (BUN) 82 mg/dL (9-23)
[2018-01-24 14:21] LABS: AST (GOT) 36 IU/L (2-34)
[2018-01-24 14:22] LABS: ALT (GPT) 37 IU/L (3-49)
[2018-01-24 14:27] LABS: SITE RR
[2018-01-24 14:28] LABS: TROP-I INTERPRETATION NEGATIVE; TROPONIN-I 0.08 ng/mL (0.0-0.30)
[2018-01-24 14:28] LABS: CARBOXY HGB 3 % (0-5); COMMENTS - BLOOD GASES NAC+; DEVICE PB 980; FI02 50 %; MECHANICAL RATE 12 resp/min; METHEMOGLOBIN 0.7 % (0-1.5); MODE AC; O2 SATURATION (CALCULATED) 100.1 % (95-99); PCO2 57 mm Hg (35-45); PEEP 5 CM/H20; PO2 114 mm Hg (80-100); TIDAL VOLUME 450 ML; TOTAL RESP RATE 12 resp/min; pH 7.36 (7.35-7.45)
[2018-01-24 14:29] LABS: BASE EXCESS 5.6 mEq/L (-3 to +3); BICARBONATE 32.2 mEq/L (22-26)
[2018-01-24] MEDS ORDERED: SANTYL30 GM TP (15:21)
[2018-01-24] MEDS ORDERED: PREVACID30 MG GT (15:26)
[2018-01-24] MEDS ORDERED: LOVENOX30 MG/0.3 SC (15:27)
[2018-01-24] MEDS ORDERED: DELTASONE20 M1 GT (15:30)
[2018-01-24] MEDS ORDERED: PREDNISONE10 MG GT (15:35)
[2018-01-24] MEDS ORDERED: RAYOS5 MG GT (15:36)
[2018-01-24] MEDS ORDERED: COREG6.25 M1 GT (15:38)
[2018-01-24] MEDS ORDERED: ALUM-MAG HYDRO360 ML GT (15:42)
[2018-01-24] MEDS ORDERED: COMBIGAN O20 DROP/5 RIGHT EYE (15:44)
[2018-01-24] MEDS ORDERED: REFRESH TEARS15 ML BOTH EYES (15:45)
[2018-01-24] MEDS ORDERED: ZOFRAN4 MG PO (15:46)
[2018-01-24] MEDS ORDERED: LEVEMIR100 UNIT/2 SC (15:53)
[2018-01-24] MEDS ORDERED: PROTONIX40 M1 GT (16:03)
[2018-01-24 18:46] LABS: APPEARANCE CLOUDY ((CLEAR)); BILIRUBIN NEGATIVE; BLOOD SMALL; COLOR YELLOW ((YELLOW)); GLUCOSE (STRIP) >=500; KETONES NEGATIVE; LEUKOCYTES SMALL; NITRITE NEGATIVE; PROTEIN (STRIP) 100; SPECIFIC GRAVITY 1.012 (1.000-1.030); UROBILINOGEN 0.2 MG/DL (0.2-1.0)
[2018-01-24 18:57] LABS: BACTERIA RARE /HPF; CALCIUM OXALATE CRYSTALS 2+ /HPF; EPITHELIAL CELLS RARE /HPF; MUCUS NONE SEEN /LPF; UCUL ADDED? YES; URIC ACID CRYSTALS 2+ /HPF
[2018-01-25] VITALS (21 sets, daily range): BP systolic 83–160; BP diastolic 51–93
[2018-01-25 08:44] LABS: BASOPHIL (%) 0.5 % (0-1); BASOPHIL COUNT 0.1 K/uL (0-0.1); EOSINOPHIL (%) 0.2 % (0-5); HEMATOCRIT 31.6 % (36.0-46.0); HEMOGLOBIN 9.5 G/DL (11.9-15.5); IMMATURE GRANULOCYTE (%) 0.4 % (0.0-0.7); LYMPHOCYTE COUNT 0.8 K/uL (1.0-2.8); MCH 28.7 PG (29.0-34.0); MCHC 30.1 G/DL (30.0-36.0); MONOCYTE (%) 10.8 % (3-12); MONOCYTE COUNT 1.4 K/uL (0-0.8); NEUTROPHIL (%) 82.1 % (45-76); NEUTROPHIL COUNT 10.7 K/uL (1.8-6.4); NRBC (%) 0.3 /100 WBC (0-0); PLATELET COUNT 304 K/uL (156-360); RBC DIS.WIDTH-CV 19.9 % (11.8-14.6); RBC DIS.WIDTH-SD 69.1 % (39-53); RED BLOOD COUNT 3.31 M/uL (3.80-5.20)
[2018-01-25 08:45] LABS: MCV 95.5 FL (83-99)
[2018-01-25 08:57] LABS: CHLORIDE 97 MEQ/L (99-109); CREATININE 2.8 MG/DL (0.6-1.3); GFR ESTIMATE (CALCULATED) 18 mL/min/; GLUCOSE 68 mg/dL (70-99); POTASSIUM 4.4 MEQ/L (3.7-5.4); SODIUM 135 MEQ/L (136-147); UREA NITROGEN (BUN) 85 mg/dL (9-23)
[2018-01-25 10:56] LABS: COMMENTS - BLOOD GASES +C; DEVICE PB980; FI02 50 %; MODE SPONT; PRES. SUPPORT 20 CM/H2O; SITE RB; TOTAL RESP RATE 18 resp/min
[2018-01-25 10:57] LABS: PCO2 37 mm Hg (35-45); PEEP 5 CM/H20; PO2 82 mm Hg (80-100); pH 7.51 (7.35-7.45)
[2018-01-25 10:58] LABS: BASE EXCESS 6.1 mEq/L (-3 to +3); BICARBONATE 29.5 mEq/L (22-26); CARBOXY HGB 2.2 % (0-5); METHEMOGLOBIN 0.9 % (0-1.5); O2 SATURATION (CALCULATED) 97.5 % (95-99)
[2018-01-25 20:44] LABS: TROP-I INTERPRETATION POSITIVE; TROPONIN-I 6.44 ng/mL (0.0-0.30)
[2018-01-26] VITALS (23 sets, daily range): BP systolic 77–110; BP diastolic 42–72
[2018-01-26 03:21] LABS: TROP-I INTERPRETATION POSITIVE
[2018-01-26 03:23] LABS: TROPONIN-I 10.02 ng/mL (0.0-0.30)
[2018-01-26 04:30] LABS: BASOPHIL (%) 0.5 % (0-1); BASOPHIL COUNT 0.1 K/uL (0-0.1); EOSINOPHIL (%) 0.4 % (0-5); EOSINOPHIL COUNT 0.1 K/uL (0-0.3); HEMATOCRIT 31.4 % (36.0-46.0); HEMOGLOBIN 9.5 G/DL (11.9-15.5); IMMATURE GRANULOCYTE (%) 0.3 % (0.0-0.7); LYMPHOCYTE (%) 8.4 % (15-42); LYMPHOCYTE COUNT 1.2 K/uL (1.0-2.8); MCHC 30.3 G/DL (30.0-36.0); MCV 95.7 FL (83-99); MONOCYTE (%) 9.3 % (3-12); MONOCYTE COUNT 1.4 K/uL (0-0.8); NEUTROPHIL (%) 81.1 % (45-76); NEUTROPHIL COUNT 11.8 K/uL (1.8-6.4); NRBC (%) 0.1 /100 WBC (0-0); PLATELET COUNT 284 K/uL (156-360); RBC DIS.WIDTH-SD 68.6 % (39-53); RED BLOOD COUNT 3.28 M/uL (3.80-5.20); WHITE BLOOD COUNT 14.6 K/uL (4.1-10.2)
[2018-01-26 04:59] LABS: CHLORIDE 96 mEq/L (99-109); SODIUM 136 mEq/L (136-147)
[2018-01-26 05:01] LABS: GLUCOSE 85 mg/dL (70-99)
[2018-01-26 05:02] LABS: MAGNESIUM 2.4 mg/dL (1.3-2.7); TOTAL PROTEIN 6.4 g/dL (6.4-8.3)
[2018-01-26 05:05] LABS: ALKALINE PHOSPHATASE 446 IU/L (3-129)
[2018-01-26 05:06] LABS: PHOSPHORUS 3.7 mg/dL (2.5-4.9); UREA NITROGEN (BUN) 94 mg/dL (9-23)
[2018-01-26 05:08] LABS: ALT (GPT) 33 IU/L (3-49)
[2018-01-26 05:12] LABS: AST (GOT) 60 IU/L (2-34); CREATININE 3.4 mg/dL (0.6-1.3); GFR ESTIMATE (CALCULATED) 14 mL/min/; TOTAL BILIRUBIN 1.3 mg/dL (0.0-1.0)
[2018-01-26 09:07] LABS: TROP-I INTERPRETATION POSITIVE
[2018-01-26 09:14] LABS: TROPONIN-I 10.55 ng/mL (0.0-0.30)
[2018-01-26 14:07] LABS: TROP-I INTERPRETATION POSITIVE; TROPONIN-I 10.24 ng/mL (0.0-0.30)
[2018-01-26 20:08] LABS: TROP-I INTERPRETATION POSITIVE; TROPONIN-I 9.28 ng/mL (0.0-0.30)
[2018-01-27] VITALS (25 sets, daily range): BP systolic 97–127; BP diastolic 54–74
[2018-01-27 02:05] LABS: HEMATOCRIT 30.2 % (36.0-46.0); HEMOGLOBIN 8.8 G/DL (11.9-15.5); MCH 28.9 PG (29.0-34.0); MCHC 29.1 G/DL (30.0-36.0); PLATELET COUNT 235 K/uL (156-360); RBC DIS.WIDTH-CV 20.1 % (11.8-14.6); RBC DIS.WIDTH-SD 72.9 % (39-53); RED BLOOD COUNT 3.05 M/uL (3.80-5.20); WHITE BLOOD COUNT 13.1 K/uL (4.1-10.2)
[2018-01-27 02:12] LABS: BASOPHIL (%) 0.4 % (0-1); BASOPHIL COUNT 0.1 K/uL (0-0.1); EOSINOPHIL (%) 0.6 % (0-5); EOSINOPHIL COUNT 0.1 K/uL (0-0.3); IMMATURE GRANULOCYTE (%) 0.5 % (0.0-0.7); LYMPHOCYTE (%) 6.5 % (15-42); LYMPHOCYTE COUNT 0.9 K/uL (1.0-2.8); MONOCYTE (%) 9.8 % (3-12); MONOCYTE COUNT 1.3 K/uL (0-0.8); NEUTROPHIL (%) 82.2 % (45-76); NEUTROPHIL COUNT 10.8 K/uL (1.8-6.4)
[2018-01-27 02:16] LABS: CHLORIDE 96 mEq/L (99-109); MAGNESIUM 2.4 mg/dL (1.3-2.7); POTASSIUM 5.3 mEq/L (3.7-5.4); SODIUM 134 mEq/L (136-147)
[2018-01-27 02:18] LABS: GLUCOSE 105 mg/dL (70-99)
[2018-01-27 02:21] LABS: PHOSPHORUS 4.6 mg/dL (2.5-4.9)
[2018-01-27 02:22] LABS: CREATININE 3.8 mg/dL (0.6-1.3); GFR ESTIMATE (CALCULATED) 13 mL/min/; UREA NITROGEN (BUN) 98 mg/dL (9-23)
[2018-01-27 02:28] LABS: TROP-I INTERPRETATION POSITIVE
[2018-01-27 02:29] LABS: TROPONIN-I 9.56 ng/mL (0.0-0.30)
[2018-01-27 03:49] LABS: C DIFF TOXIN NEGATIVE (NEGATIVE)
[2018-01-27 14:47] LABS: INTER. NORMALIZED RATIO 1.2
[2018-01-27 14:49] LABS: PTT 61.6 SEC (25-37)
[2018-01-28] VITALS (23 sets, daily range): BP systolic 95–133; BP diastolic 52–83
[2018-01-28 06:32] LABS: BASOPHIL (%) 0.3 % (0-1); EOSINOPHIL (%) 1.1 % (0-5); EOSINOPHIL COUNT 0.1 K/uL (0-0.3); HEMOGLOBIN 8.6 G/DL (11.9-15.5); IMMATURE GRANULOCYTE (%) 0.5 % (0.0-0.7); LYMPHOCYTE (%) 6.5 % (15-42); LYMPHOCYTE COUNT 0.8 K/uL (1.0-2.8); MCH 28.4 PG (29.0-34.0); MCHC 29.7 G/DL (30.0-36.0); MCV 95.7 FL (83-99); MONOCYTE COUNT 1.2 K/uL (0-0.8); NEUTROPHIL (%) 82.6 % (45-76); NEUTROPHIL COUNT 10.6 K/uL (1.8-6.4); PLATELET COUNT 274 K/uL (156-360); RBC DIS.WIDTH-CV 19.9 % (11.8-14.6); RBC DIS.WIDTH-SD 69.1 % (39-53); RED BLOOD COUNT 3.03 M/uL (3.80-5.20); WHITE BLOOD COUNT 12.8 K/uL (4.1-10.2)
[2018-01-28 06:43] LABS: INTER. NORMALIZED RATIO 1.2
[2018-01-28 06:46] LABS: PTT 68.4 SEC (25-37)
[2018-01-28 07:00] LABS: CHLORIDE 94 MEQ/L (99-109); CREATININE 4.1 MG/DL (0.6-1.3); GFR ESTIMATE (CALCULATED) 12 mL/min/; GLUCOSE 125 mg/dL (70-99); MAGNESIUM 2.6 mg/dl (1.3-2.7); POTASSIUM 5.2 MEQ/L (3.7-5.4); SODIUM 133 MEQ/L (136-147); UREA NITROGEN (BUN) 98 mg/dL (9-23)
[2018-01-28 07:01] LABS: PHOSPHORUS 5.2 mg/dL (2.5-4.9)
[2018-01-29] VITALS (22 sets, daily range): BP systolic 98–116; BP diastolic 56–68
[2018-01-29 05:12] LABS: BASOPHIL (%) 0.5 % (0-1); BASOPHIL COUNT 0.1 K/uL (0-0.1); EOSINOPHIL (%) 1.1 % (0-5); EOSINOPHIL COUNT 0.1 K/uL (0-0.3); HEMATOCRIT 30.4 % (36.0-46.0); IMMATURE GRANULOCYTE (%) 0.5 % (0.0-0.7); LYMPHOCYTE (%) 7.2 % (15-42); LYMPHOCYTE COUNT 0.8 K/uL (1.0-2.8); MCH 28.4 PG (29.0-34.0); MCHC 29.6 G/DL (30.0-36.0); MCV 95.9 FL (83-99); MONOCYTE (%) 8.6 % (3-12); MONOCYTE COUNT 0.9 K/uL (0-0.8); NEUTROPHIL (%) 82.1 % (45-76); PLATELET COUNT 253 K/uL (156-360); RBC DIS.WIDTH-CV 19.8 % (11.8-14.6); RBC DIS.WIDTH-SD 69.1 % (39-53); RED BLOOD COUNT 3.17 M/uL (3.80-5.20)
[2018-01-29 05:56] LABS: ALBUMIN 3.1 G/DL (3.2-4.8); CHLORIDE 94 MEQ/L (99-109); GFR ESTIMATE (CALCULATED) 40 mL/min/; GLUCOSE 103 mg/dL (70-99); MAGNESIUM 2.4 mg/dl (1.3-2.7); PHOSPHORUS 4.3 mg/dL (2.5-4.9); POTASSIUM 4.7 MEQ/L (3.7-5.4); SODIUM 136 MEQ/L (136-147); UREA NITROGEN (BUN) 67 mg/dL (9-23)
[2018-01-29 06:59] LABS: CREATININE 3.3 MG/DL (0.6-1.3)
[2018-01-29 08:21] LABS: INTACT PARATHYROID HORMONE 168 pg/mL (10-69)
[2018-01-30] VITALS (22 sets, daily range): BP systolic 87–117; BP diastolic 54–74
[2018-01-30 05:27] LABS: BASOPHIL (%) 0.7 % (0-1); BASOPHIL COUNT 0.1 K/uL (0-0.1); EOSINOPHIL (%) 2.1 % (0-5); EOSINOPHIL COUNT 0.3 K/uL (0-0.3); HEMATOCRIT 30.9 % (36.0-46.0); HEMOGLOBIN 9.1 G/DL (11.9-15.5); IMMATURE GRANULOCYTE (%) 0.5 % (0.0-0.7); LYMPHOCYTE (%) 11.5 % (15-42); LYMPHOCYTE COUNT 1.3 K/uL (1.0-2.8); MCH 28.1 PG (29.0-34.0); MCHC 29.4 G/DL (30.0-36.0); MCV 95.4 FL (83-99); MONOCYTE (%) 13.1 % (3-12); MONOCYTE COUNT 1.5 K/uL (0-0.8); NEUTROPHIL (%) 72.1 % (45-76); NEUTROPHIL COUNT 8.4 K/uL (1.8-6.4); PLATELET COUNT 248 K/uL (156-360); RBC DIS.WIDTH-CV 19.5 % (11.8-14.6); RBC DIS.WIDTH-SD 68.7 % (39-53); RED BLOOD COUNT 3.24 M/uL (3.80-5.20); WHITE BLOOD COUNT 11.6 K/uL (4.1-10.2)
[2018-01-30 06:39] LABS: CHLORIDE 97 MEQ/L (99-109); GFR ESTIMATE (CALCULATED) 18 mL/min/; GLUCOSE 92 mg/dL (70-99); MAGNESIUM 2.2 mg/dl (1.3-2.7); PHOSPHORUS 3.5 mg/dL (2.5-4.9); POTASSIUM 4.3 MEQ/L (3.7-5.4); SODIUM 137 MEQ/L (136-147); UREA NITROGEN (BUN) 40 mg/dL (9-23)
[2018-01-30 06:42] LABS: CREATININE 2.8 MG/DL (0.6-1.3)
[2018-01-31] VITALS (31 sets, daily range): BP systolic 79–128; BP diastolic 49–76
[2018-01-31 05:22] LABS: HEMATOCRIT 32.3 % (36.0-46.0); HEMOGLOBIN 9.4 G/DL (11.9-15.5); MCH 27.9 PG (29.0-34.0); MCHC 29.1 G/DL (30.0-36.0); MCV 95.8 FL (83-99); PLATELET COUNT 243 K/uL (156-360); RBC DIS.WIDTH-CV 19.5 % (11.8-14.6); RBC DIS.WIDTH-SD 68.1 % (39-53); RED BLOOD COUNT 3.37 M/uL (3.80-5.20); WHITE BLOOD COUNT 12.7 K/uL (4.1-10.2)
[2018-01-31 06:04] LABS: CHLORIDE 95 MEQ/L (99-109); GFR ESTIMATE (CALCULATED) 14 mL/min/; POTASSIUM 4.4 MEQ/L (3.7-5.4); SODIUM 134 MEQ/L (136-147); UREA NITROGEN (BUN) 49 mg/dL (9-23)
[2018-01-31 06:18] LABS: CREATININE 3.5 MG/DL (0.6-1.3); GLUCOSE 140 mg/dL (70-99)
[2018-01-31 11:20] LABS: HEPATITIS B SURFACE ANTIGEN Nonreactive
[2018-02-01] VITALS (16 sets, daily range): BP systolic 86–113; BP diastolic 48–68
[2018-02-01 07:51] LABS: HEMATOCRIT 33.8 % (36.0-46.0); HEMOGLOBIN 9.9 G/DL (11.9-15.5); MCHC 29.3 G/DL (30.0-36.0); MCV 95.5 FL (83-99); PLATELET COUNT 249 K/uL (156-360); RBC DIS.WIDTH-CV 19.3 % (11.8-14.6); RBC DIS.WIDTH-SD 67.1 % (39-53); RED BLOOD COUNT 3.54 M/uL (3.80-5.20); WHITE BLOOD COUNT 11.6 K/uL (4.1-10.2)
[2018-02-01 08:24] LABS: CHLORIDE 95 MEQ/L (99-109); GFR ESTIMATE (CALCULATED) 17 mL/min/; GLUCOSE 183 mg/dL (70-99); POTASSIUM 4.4 MEQ/L (3.7-5.4); SODIUM 133 MEQ/L (136-147); UREA NITROGEN (BUN) 32 mg/dL (9-23)
[2018-02-01 08:25] LABS: CREATININE 2.9 MG/DL (0.6-1.3)
[2018-02-02] VITALS (20 sets, daily range): BP systolic 90–112; BP diastolic 55–72
[2018-02-03] VITALS (17 sets, daily range): BP systolic 70–119; BP diastolic 46–75
[2018-02-03 05:00] LABS: BASOPHIL (%) 0.7 % (0-1); BASOPHIL COUNT 0.1 K/uL (0-0.1); EOSINOPHIL (%) 1.4 % (0-5); EOSINOPHIL COUNT 0.2 K/uL (0-0.3); HEMATOCRIT 30.7 % (36.0-46.0); HEMOGLOBIN 9.3 G/DL (11.9-15.5); IMMATURE GRANULOCYTE (%) 1.4 % (0.0-0.7); LYMPHOCYTE (%) 15.2 % (15-42); LYMPHOCYTE COUNT 1.9 K/uL (1.0-2.8); MCH 28.3 PG (29.0-34.0); MCHC 30.3 G/DL (30.0-36.0); MCV 93.3 FL (83-99); MONOCYTE (%) 13.7 % (3-12); MONOCYTE COUNT 1.7 K/uL (0-0.8); NEUTROPHIL (%) 67.6 % (45-76); NEUTROPHIL COUNT 8.4 K/uL (1.8-6.4); PLATELET COUNT 276 K/uL (156-360); RBC DIS.WIDTH-CV 19.6 % (11.8-14.6); RBC DIS.WIDTH-SD 66.3 % (39-53); RED BLOOD COUNT 3.29 M/uL (3.80-5.20); WHITE BLOOD COUNT 12.4 K/uL (4.1-10.2)
[2018-02-03 06:06] LABS: ALBUMIN 3.1 G/DL (3.2-4.8); CHLORIDE 92 MEQ/L (99-109); GFR ESTIMATE (CALCULATED) 12 mL/min/; GLUCOSE 145 mg/dL (70-99); PHOSPHORUS 4.2 mg/dL (2.5-4.9); POTASSIUM 4.3 MEQ/L (3.7-5.4); SODIUM 132 MEQ/L (136-147); UREA NITROGEN (BUN) 44 mg/dL (9-23)
[2018-02-03 15:22] LABS: HEMATOCRIT 27.1 % (36.0-46.0); HEMOGLOBIN 8.2 G/DL (11.9-15.5); MCH 28.1 PG (29.0-34.0); MCHC 30.3 G/DL (30.0-36.0); MCV 92.8 FL (83-99); NRBC (%) 0.1 /100 WBC (0-0); PLATELET COUNT 213 K/uL (156-360); RBC DIS.WIDTH-CV 19.4 % (11.8-14.6); RBC DIS.WIDTH-SD 64.5 % (39-53); RED BLOOD COUNT 2.92 M/uL (3.80-5.20)
[2018-02-03 15:46] LABS: TROPONIN-I 4.38 ng/mL (0.0-0.30)
[2018-02-03 15:47] LABS: CHLORIDE 96 MEQ/L (99-109); MAGNESIUM 1.9 mg/dl (1.3-2.7); POTASSIUM 3.9 MEQ/L (3.7-5.4); SODIUM 136 MEQ/L (136-147); TROP-I INTERPRETATION POSITIVE
[2018-02-03 15:56] LABS: GLUCOSE 123 mg/dL (70-99)
[2018-02-03 15:59] LABS: UREA NITROGEN (BUN) 20 mg/dL (9-23)
[2018-02-03 16:00] LABS: GFR ESTIMATE (CALCULATED) 27 mL/min/; PHOSPHORUS 2.5 mg/dL (2.5-4.9)
== END 2018-02-03 15:45 | DRG 166 ==
LOC: EME → EDBD 13:24 → EME 13:24 → 4WEST 16:11 → EDOF 16:11 → ENRESERV 16:15 → 4WEST 19:09
PROVIDERS: Emergency Medicine; Internal Medicine; Internal Medicine Cardiovascular Disease; Internal Medicine Critical Care Medicine
DX: J15.1 Pneumonia due to Pseudomonas (principal); J96.21 Acute and chronic respiratory failure with hypoxia; I21.4 Non-ST elevation (NSTEMI) myocardial infarction; N17.9 Acute kidney failure, unspecified; J98.19 Other pulmonary collapse; N25.81 Secondary hyperparathyroidism of renal origin; J98.11 Atelectasis; N18.4 Chronic kidney disease, stage 4 (severe); E11.52 Type 2 diabetes mellitus with diabetic peripheral angiopathy with gangrene; E87.2 Acidosis; I96 Gangrene, not elsewhere classified; I25.810 Atherosclerosis of coronary artery bypass graft(s) without angina pectoris; L89.610 Pressure ulcer of right heel, unstageable; H40.9 Unspecified glaucoma; M19.90 Unspecified osteoarthritis, unspecified site; E11.22 Type 2 diabetes mellitus with diabetic chronic kidney disease; I13.2 Hypertensive heart and chronic kidney disease with heart failure and with stage 5 chronic kidney disease, or end stage renal disease; Z99.11 Dependence on respirator [ventilator] status; R18.8 Other ascites; R53.81 Other malaise; I48.2 Chronic atrial fibrillation; I34.0 Nonrheumatic mitral (valve) insufficiency; I50.9 Heart failure, unspecified; E11.21 Type 2 diabetes mellitus with diabetic nephropathy; D63.1 Anemia in chronic kidney disease; I25.5 Ischemic cardiomyopathy; I25.2 Old myocardial infarction; E83.39 Other disorders of phosphorus metabolism; B96.5 Pseudomonas (aeruginosa) (mallei) (pseudomallei) as the cause of diseases classified elsewhere; H54.62 Unqualified visual loss, left eye, normal vision right eye; E66.01 Morbid (severe) obesity due to excess calories; Z79.899 Other long term (current) drug therapy; E78.5 Hyperlipidemia, unspecified; Z68.31 Body mass index [BMI] 31.0-31.9, adult; Z87.01 Personal history of pneumonia (recurrent); Z16.24 Resistance to multiple antibiotics; Z86.74 Personal history of sudden cardiac arrest; Z88.8 Allergy status to other drugs, medicaments and biological substances; Z95.1 Presence of aortocoronary bypass graft; Z99.2 Dependence on renal dialysis; Z79.82 Long term (current) use of aspirin; Z93.0 Tracheostomy status; Z79.4 Long term (current) use of insulin
CPT/HCPCS: 36600; 71045; 74018; 74176; 76770; 80048; 80048 91; 80053; 80069; 81003; 82803; 82948; 83605; 83735; 83880; 83970; 84100; 84145 90; 84484; 85025; 85025 91; 85027; 85610; 85730; 87040; 87070; 87077; 87081; 87086; 87186; 87205; 87340; 87493; 87641; 92610 GN; 93005; 93306; 94002; 94003; 94640 76; 94760; 94799; 99202; 99281; 99285; C1750; C1769; C1788; J0171; J0282; J0690; J0744; J0881; J1644; J1815; J1940; J2060; J2185; J2250; J2543; J2765; J2997; J3010; J7050; J7120; P9045; P9047; S0020